=== PATIENT | male | born 1965 | race African-American/Black ===

== ENCOUNTER 2022-01-29 08:03 | Day surgery (SDC) | payer BC ==
[2022-01-26 11:50] VITALS: BMI 31.2
[2022-01-29] MEDS ORDERED: TRANEXAMIC ACID 1000 MG/10 ML VIAL IVPUSH ONE (08:15)
[2022-01-29] MEDS ORDERED: CEFAZOLIN 2 GM in DEXTROSE 5%-WATER - 50 ML IVPB ONE (08:15)
[2022-01-29] MEDS ORDERED: CEFAZOLIN 2 GM in DEXTROSE 5%-WATER 100 ML IVPB ONE (08:25)
[2022-01-29] MEDS ORDERED: CELECOXIB 200 MG CAPSULE ONE (08:27)
[2022-01-29] MEDS: CELECOXIB 200 MG CAPSULE PO ONE ×2 (08:35→16:21)
[2022-01-29] MEDS ORDERED: VANCOMYCIN 1,000 MG VIAL (RESTRICTED TO ID ONLY) ONE (09:22)
[2022-01-29] MEDS ORDERED: TRANEXAMIC ACID 1000 MG/10 ML VIAL ONE (09:22)
[2022-01-29] MEDS ORDERED: MIDAZOLAM HCL 2 MG/2 ML SINGLE DOSE VIAL ONE ×5 (09:30→13:24)
[2022-01-29] MEDS ORDERED: BUPIVACAINE LIPOSOME/PF (EXPAREL) 266 MG/20 ML VIAL ONE (09:31)
[2022-01-29] MEDS ORDERED: BUPIVACAINE HCL/PF 2.5 MG/ML - 30 ML VIAL IJ ONE (09:31)
[2022-01-29] MEDS ORDERED: ROPIVACAINE HCL/PF 100 MG/20 ML VIAL ONE (09:31)
[2022-01-29] MEDS ORDERED: oxyCODONE HCL 5 MG TABLET PO PRN (09:51)
[2022-01-29] MEDS ORDERED: ONDANSETRON 4 MG/2 ML VIAL IVPUSH PRN ×2 (09:53→14:01)
[2022-01-29] MEDS ORDERED: PROPOFOL 20 ML ONE ×3 (09:57)
[2022-01-29] MEDS ORDERED: PHENYLEPHRINE HCL 10 MG/1 ML SINGLE DOSE VIAL ONE (10:00)
[2022-01-29] MEDS ORDERED: BUPIVACAINE HCL 50 ML ONE (10:32)
[2022-01-29] MEDS ORDERED: BUPIVICAINE 0.25%/MORPH PF/KETOROLAC - 51ML DISP.SYRINGE IA ONE ×2 (13:09→13:56)
[2022-01-29] MEDS ORDERED: MAG HYDROX/AL HYDROX/SIMETH 30 ML UNIT-DOSE CUP PO PRN (14:01)
[2022-01-29] MEDS ORDERED: LACTATED RINGERS SOLUTION 1,000 ML IV SCH (14:15)
[2022-01-29] MEDS ORDERED: KETOROLAC TROMETHAMINE 30 MG/1 ML VIAL ONE (14:53)
[2022-01-29] MEDS: KETOROLAC TROMETHAMINE 30 MG/1 ML VIAL IVPUSH SCH ×2 (15:00→16:24)
[2022-01-29] MEDS: LACTATED RINGERS SOLUTION 1,000 ML IV SCH (16:22)
[2022-01-29] MEDS: oxyCODONE HCL 10 MG SUSTAINED ACTING TABLET PO SCH ×2 (16:22→21:56)
[2022-01-29] MEDS: oxyCODONE HCL 5 MG TABLET PO PRN ×2 (16:37→19:28)
[2022-01-29] MEDS ORDERED: ceFAZolin SODIUM 1 GM VIAL ONE (19:25)
[2022-01-29] MEDS ORDERED: DEXTROSE 5%-WATER 100 ML IVPB ONE (19:25)
[2022-01-29] MEDS: CEFAZOLIN 2 GM in DEXTROSE 5%-WATER 100 ML IVPB SCH (19:27)
[2022-01-29] MEDS: SENNOSIDES/DOCUSATE COMBO (SENNA PLUS) TABLET (UD) PO SCH (21:56)
[2022-01-29] MEDS: GABAPENTIN 300 MG CAPSULE PO SCH (21:57)
[2022-01-30] MEDS: CEFAZOLIN 2 GM in DEXTROSE 5%-WATER 100 ML IVPB SCH ×2 (02:12→09:31)
[2022-01-30] MEDS ORDERED: DEXTROSE 5%-WATER 100 ML IVPB ONE ×2 (03:24→09:12)
[2022-01-30] MEDS ORDERED: ceFAZolin SODIUM 1 GM VIAL ONE ×2 (03:24→09:12)
[2022-01-30 09:06] LABS: CALCIUM 9.2 mg/dl (8.5-10)
[2022-01-30] MEDS: GABAPENTIN 300 MG CAPSULE PO SCH (09:27)
[2022-01-30] MEDS: SENNOSIDES/DOCUSATE COMBO (SENNA PLUS) TABLET (UD) PO SCH (09:28)
[2022-01-30] MEDS: oxyCODONE HCL 10 MG SUSTAINED ACTING TABLET PO SCH (09:28)
[2022-01-30] MEDS: LACTATED RINGERS SOLUTION 1,000 ML IV SCH (09:36)
[2022-01-30 09:59] LABS: HEMATOCRIT 40.4 % (35.4-49); HEMOGLOBIN 13.6 GM/dL (11.7-16.9); MCH 30.7 pg (25.7-33.7); MCHC 33.6 g/dl (32.0-35.9); MEAN CELL VOLUME 91.4 fl (80-96); MEAN PLT VOLUME 8.7 fl (7.5-11.1); PLATELET COUNT 231 10^3/uL (134-434); RBC 4.43 M/mm3 (4.00-5.60); RDW 13.6 % (11.9-15.9); WHITE BLOOD COUNT 5.6 K/mm3 (4.0-10.0)
[2022-01-30] MEDS ORDERED: MULTIVITAMINS (DAILY MVI) TABLET (FP) PO SCH (10:00)
[2022-01-30] MEDS ORDERED: PANTOPRAZOLE 40 MG TABLET PO SCH (10:00)
[2022-01-30] MEDS ORDERED: ASPIRIN 325 MG TABLET PO SCH (10:00)
[2022-01-30] MEDS ORDERED: KETOROLAC TROMETHAMINE 30 MG/1 ML VIAL IVPUSH PRN (11:35)
[2022-01-30] MEDS: oxyCODONE HCL 5 MG TABLET PO PRN (12:51)
[2022-01-30 14:36] VITALS: BP 158/79; PULSE 83; TEMP 99
== END 2022-01-30 16:19 | disposition home or self-care (01) ==
LOC: FASUSAT 08:03 → SUATTDRO 08:03 → EDSTATUS 10:30 → FM/S 15:36 → FASUSAT 01-30 16:19
PROVIDERS: ATTEND Nurse Practitioner Acute Care
PROC: 8E0YXBZ Computer Assisted Procedure of Lower Extremity (ICD-10-PCS; 2022-01-29)
PROC: 8E0Y0CZ Robotic Assisted Procedure of Lower Extremity, Open Approach (ICD-10-PCS; 2022-01-29)
PROC: 0SRD0J9 Replacement of Left Knee Joint with Synthetic Substitute, Cemented, Open Approach (ICD-10-PCS; principal; 2022-01-29 12:11)
DX: M17.12 Unilateral primary osteoarthritis, left knee (principal)
CPT/HCPCS: 20985; 27447; C1776; S2900; 36415; 73560-TC-LT-FY; 80048; 85027; 94760; 97010-GP; 97116-GP; 97162-GP